=== PATIENT | male | born 1940 | race Asian ===

== ENCOUNTER 2023-03-28 12:50 | Emergency (ER) | payer OTHER ==
[~2023-03-28] VITALS: Ht 165.1 cm; Wt 68.0 kg
[2023-03-28 13:16] VITALS: BP_SYST 102
[2023-03-28 14:00] LABS: BASOPHILS # (AUTO) 0.1 K/uL (0.0-0.2); BASOPHILS % (AUTO) 0.8 % (0.0-2.0); EOSINOPHILS # (AUTO) 0.5 K/uL (0.0-0.4); EOSINOPHILS % (AUTO) 6.5 % (0.0-4.0); HEMATOCRIT 35.3 % (36-54); HEMOGLOBIN 11.6 g/dL (14.0-18.0); LYMPHOCYTES # (AUTO) 0.7 K/uL (1.0-5.5); LYMPHOCYTES % (AUTO) 9.3 % (20.5-51.5); MEAN CORPUSCULAR HEMOGLOBIN 30 pg (27-31); MEAN CORPUSCULAR HGB CONC 33 % (32-36); MEAN CORPUSCULAR VOLUME 90 fL (79.0-98.0); MONOCYTES # (AUTO) 1.1 K/uL (0.0-1.0); MONOCYTES % (AUTO) 15.2 % (1.7-9.3); NEUTROPHILS % (AUTO) 68.2 % (40.0-70.0); PLATELET COUNT (AUTO) 183 K/uL (130-430); RED BLOOD CELL COUNT(AUTO) 3.91 MIL/uL (4.2-6.2); RED CELL DISTRIBUTION WIDTH 14.1 % (9.0-15.0); WHITE BLOOD COUNT (AUTO) 7.4 K/uL (4.8-10.8)
[2023-03-28 14:14] LABS: ANION GAP 10 (5-15); CALCIUM 8.8 mg/dL (8.4-11.0); CHLORIDE 101 mmol/L (98-107); CREATININE 1.58 mg/dL (0.55-1.30); GLUCOSE 231 mg/dL (74-106); UREA NITROGEN, BLOOD 26 mg/dL (8-21)
[2023-03-28 14:19] LABS: ALANINE AMINOTRANSFERASE 64 U/L (12-78); ALBUMIN 2.8 g/dL (3.4-4.8); ASPARTATE AMINOTRANSFERASE 70 U/L (10-37); TOTAL BILIRUBIN 0.2 mg/dL (0.0-1.0)
[2023-03-28] MEDS ORDERED: ONDA-8 TL ×2 (14:29→16:07)
[2023-03-28] MEDS ORDERED: ACET-2634 PO ×2 (14:29→16:09)
[2023-03-28] MEDS ORDERED: COLC0.6T67 PO ×2 (14:29→16:07)
[2023-03-28] MEDS ORDERED: COLCHICINE 0.6 MG TABLET PO ONE (14:30)
[2023-03-28 16:14] VITALS: BP_SYST 102
== END 2023-03-28 16:16 | disposition home or self-care (01) ==
LOC: SED 12:50
DX: M25.432 Effusion, left wrist (principal); Z79.899 Other long term (current) drug therapy
CPT/HCPCS: 36415; 80053; 83605; 85025; 93971; 99285

== ENCOUNTER 2023-12-03 00:11 | Inpatient (IN) | payer OTHER ==
[2023-12-03] VITALS (7 sets, daily range): BP systolic 121–154; PULSE 73–94; RESP 16–20; TEMP 96–99.5; O2SAT 0–99
[~2023-12-03] VITALS: Ht 165.1 cm; Wt 61.9 kg
[~2023-12-03 00:11] MED LIST: ACET-2634 PO; COLC0.6T67 PO; ONDA-8 TL
[2023-12-03 00:45] LABS: BASOPHILS % (AUTO) 0.7 % (0.0-2.0); EOSINOPHILS # (AUTO) 0.4 K/uL (0.0-0.4); EOSINOPHILS % (AUTO) 5.1 % (0.0-4.0); HEMATOCRIT 39.9 % (36-54); LYMPHOCYTES # (AUTO) 0.4 K/uL (1.0-5.5); LYMPHOCYTES % (AUTO) 5.8 % (20.5-51.5); MEAN CORPUSCULAR HEMOGLOBIN 30 pg (27-31); MEAN CORPUSCULAR HGB CONC 33 % (32-36); MEAN CORPUSCULAR VOLUME 92 fL (79.0-98.0); MONOCYTES # (AUTO) 1.2 K/uL (0.0-1.0); MONOCYTES % (AUTO) 15.7 % (1.7-9.3); NEUTROPHILS # (AUTO) 5.4 K/uL (1.8-7.7); NEUTROPHILS % (AUTO) 72.7 % (40.0-70.0); PLATELET COUNT (AUTO) 180 K/uL (130-430); RED BLOOD CELL COUNT(AUTO) 4.35 MIL/uL (4.2-6.2); RED CELL DISTRIBUTION WIDTH 14.6 % (9.0-15.0); WHITE BLOOD COUNT (AUTO) 7.4 K/uL (4.8-10.8)
[2023-12-03 01:11] LABS: INR 0.9 (0.80-1.20); PROTHROMBIN TIME 9.7 SECS (9.5-12.5)
[2023-12-03 01:24] LABS: ALANINE AMINOTRANSFERASE 98 U/L (12-78); ALBUMIN 3.3 g/dL (3.4-4.8); ANION GAP 6 (5-15); ASPARTATE AMINOTRANSFERASE 121 U/L (10-37); BILIRUBIN,DIRECT 0.1 mg/dL (0.0-0.3); CALCIUM 8.7 mg/dL (8.4-11.0); CARBON DIOXIDE 28 mmol/L (23-29); CHLORIDE 102 mmol/L (98-107); CREATININE 1.09 mg/dL (0.55-1.30); GLUCOSE 190 mg/dL (74-106); POTASSIUM 4.2 mmol/L (3.5-5.1); SODIUM SERUM 136 mmol/L (136-145); TOTAL BILIRUBIN 0.2 mg/dL (0.0-1.0); TOTAL PROTEIN, SERUM 7.3 g/dL (6.4-8.3); UREA NITROGEN, BLOOD 21 mg/dL (8-21)
[2023-12-03] MEDS ORDERED: iohexoL 350 mgI/mL, 100 ML INFUS..BTL IV ONE (01:30)
[2023-12-03 01:31] LABS: BILIRUBIN,URINE NEGATIVE (NEGATIVE); CLARITY/URINE CLEAR (CLEAR); COLOR,URINE YELLOW (YELLOW); GLUCOSE,URINE 3+ (NEGATIVE); KETONES,URINE NEGATIVE (NEGATIVE); LEUKOCYTE ESTERASE ,URINE NEGATIVE (NEGATIVE); NITRITE, URINE NEGATIVE (NEGATIVE); PH,URINE 7.5 (5.0-8.0); PROTEIN URINE 2+ (NEGATIVE); UROBILINOGEN,URINE 0.2 (0.2-1.0)
[2023-12-03 01:35] LABS: BLOOD, URINE TRACE (NEGATIVE)
[2023-12-03 01:36] LABS: BACTERIA,URINE None Seen /HPF (None Seen); WBC,URINE 0-3 /HPF (0-3)
[2023-12-03] MEDS ORDERED: INSU100I28 SQ (01:38)
[2023-12-03] MEDS ORDERED: METF-381 PO (01:38)
[2023-12-03] MEDS ORDERED: ATOR20TA64 PO (01:38)
[2023-12-03] MEDS ORDERED: GABAPENTIN (01:38)
[2023-12-03] MEDS ORDERED: ALLO100T PO (01:38)
[2023-12-03] MEDS ORDERED: AMLO5TAB92 PO (01:38)
[2023-12-03] MEDS ORDERED: INSU300I SUBCUT (01:38)
[2023-12-03] MEDS ORDERED: LOSA50TA28 PO (01:38)
[2023-12-03] MEDS: CLOPIDOGREL BISULFATE 75 MG TABLET PO ONE ×2 (03:30→14:47)
[2023-12-03] MEDS: ASPIRIN 81 MG TAB.CHEW PO ONE (03:34)
[2023-12-03] MEDS ORDERED: HYDROcodone/ACETAMIN 5-325 MG TAB (NORCO/ VICODIN) PO PRN (04:45)
[2023-12-03] MEDS ORDERED: ONDANSETRON HCL 4 MG/2 ML VIAL IVP PRN (04:45)
[2023-12-03] MEDS ORDERED: metFORMIN HCL 500 MG TABLET PO ONE (13:45)
[2023-12-03] MEDS ORDERED: NEU300 PO (14:09)
[2023-12-03] MEDS ORDERED: EMPA25TA PO (14:09)
[2023-12-03] MEDS ORDERED: ASA81 PO (14:09)
[2023-12-03] MEDS: amLODIPine BESYLATE 5 MG TABLET PO ONE (14:47)
[2023-12-03] MEDS: ATORVASTATIN 10 MG TABLET PO ONE (14:47)
[2023-12-03] MEDS: ALLOPURINOL 100 MG TABLET (ZYLOPRIM) PO ONE (14:47)
[2023-12-04] VITALS (7 sets, daily range): BP systolic 94–139; PULSE 63–79; RESP 15–18; TEMP 96.7–98.1; O2SAT 93–99
[2023-12-04] MEDS: BENZOCAINE/MENTHOL 1 EACH LOZENGE PO PRN (00:58)
[2023-12-04] MEDS: INSULIN REGULAR, HUMAN 100 UNITS/ML, 3 ML VIAL (humuLIN R) SUBCUT PRN ×2 (01:00→17:29)
[2023-12-04 04:18] LABS: BASOPHILS # (AUTO) 0.1 K/uL (0.0-0.2); BASOPHILS % (AUTO) 0.8 % (0.0-2.0); EOSINOPHILS # (AUTO) 0.5 K/uL (0.0-0.4); EOSINOPHILS % (AUTO) 7.2 % (0.0-4.0); HEMATOCRIT 40.5 % (36-54); HEMOGLOBIN 13.6 g/dL (14.0-18.0); LYMPHOCYTES # (AUTO) 0.7 K/uL (1.0-5.5); LYMPHOCYTES % (AUTO) 10.5 % (20.5-51.5); MEAN CORPUSCULAR HEMOGLOBIN 30 pg (27-31); MEAN CORPUSCULAR HGB CONC 34 % (32-36); MEAN CORPUSCULAR VOLUME 91 fL (79.0-98.0); MONOCYTES # (AUTO) 1.3 K/uL (0.0-1.0); NEUTROPHILS # (AUTO) 3.9 K/uL (1.8-7.7); NEUTROPHILS % (AUTO) 61.5 % (40.0-70.0); PLATELET COUNT (AUTO) 167 K/uL (130-430); RED BLOOD CELL COUNT(AUTO) 4.48 MIL/uL (4.2-6.2); RED CELL DISTRIBUTION WIDTH 14.3 % (9.0-15.0); WHITE BLOOD COUNT (AUTO) 6.3 K/uL (4.8-10.8)
[2023-12-04 04:25] LABS: ANION GAP 9 (5-15); CALCIUM 9.3 mg/dL (8.4-11.0); CARBON DIOXIDE 27 mmol/L (23-29); CHLORIDE 105 mmol/L (98-107); CREATININE 1.22 mg/dL (0.55-1.30); GLUCOSE 99 mg/dL (74-106); POTASSIUM 3.7 mmol/L (3.5-5.1); SODIUM SERUM 141 mmol/L (136-145); UREA NITROGEN, BLOOD 26 mg/dL (8-21)
[2023-12-04] MEDS: ATORVASTATIN 10 MG TABLET PO SCH (08:47)
[2023-12-04] MEDS: CLOPIDOGREL BISULFATE 75 MG TABLET PO SCH (08:47)
[2023-12-04] MEDS: ALLOPURINOL 100 MG TABLET (ZYLOPRIM) PO SCH (08:47)
[2023-12-04] MEDS: amLODIPine BESYLATE 5 MG TABLET PO SCH (08:49)
[2023-12-04] MEDS ORDERED: LORazepam 2 MG/ML VIAL IVP PRN (11:45)
[2023-12-04] MEDS ORDERED: HYDROcodone/ACETAMIN 5-325 MG TAB (NORCO/ VICODIN) PO PRN (11:45)
[2023-12-04] MEDS ORDERED: ACETAMINOPHEN 325 MG TABLET PO PRN ×3 (11:45→12:15)
[2023-12-04] MEDS ORDERED: ONDANSETRON HCL 4 MG/2 ML VIAL IVP PRN (11:45)
[2023-12-04] MEDS ORDERED: NALOXONE HCL 0.4 MG/ML AMP (NARCAN) IVP PRN ×2 (11:45)
[2023-12-04] MEDS ORDERED: ASPIRIN 81 MG TAB.CHEW PO SCH (11:45)
[2023-12-04] MEDS: ALLOPURINOL 100 MG TABLET (ZYLOPRIM) PO ONE (12:36)
[2023-12-04] MEDS: LOSARTAN POTASSIUM 50 MG TABLET (COZAAR) PO ONE (12:37)
[2023-12-04] MEDS: amLODIPine BESYLATE 5 MG TABLET PO ONE (12:37)
[2023-12-04] MEDS: HYDROcodone/ACETAMIN 10-325 MG TAB PO PRN (12:59)
[2023-12-04] MEDS: EMPAGLIFLOZIN 10 MG TABLET PO ONE (13:01)
[2023-12-04] MEDS: INSULIN GLARGINE 100 UNITS/ML, 10 ML VIAL SUBCUT ONE (13:03)
[2023-12-04] MEDS: NORMAL SALINE 5 ML DISP.SYRIN IVF SCH (13:13)
[2023-12-04] MEDS: GABAPENTIN 300 MG CAPSULE PO SCH (17:04)
[2023-12-04] MEDS: NACL 0.9% 1,000 ML IV SCH (17:11)
[2023-12-04] MEDS ORDERED: metFORMIN HCL 500 MG TABLET PO SCH (21:00)
[2023-12-04] MEDS ORDERED: ATORVASTATIN 20 MG TABLET PO SCH (21:00)
[2023-12-05 00:35] VITALS: BP_SYST 104; PULSE 66; RESP 16; TEMP 96.4; O2SAT 96
[2023-12-05 06:01] LABS: BASOPHILS % (AUTO) 0.6 % (0.0-2.0); EOSINOPHILS # (AUTO) 0.7 K/uL (0.0-0.4); EOSINOPHILS % (AUTO) 11.3 % (0.0-4.0); HEMATOCRIT 40.3 % (36-54); HEMOGLOBIN 13.4 g/dL (14.0-18.0); LYMPHOCYTES # (AUTO) 0.8 K/uL (1.0-5.5); LYMPHOCYTES % (AUTO) 13.2 % (20.5-51.5); MEAN CORPUSCULAR HEMOGLOBIN 30 pg (27-31); MEAN CORPUSCULAR HGB CONC 33 % (32-36); MEAN CORPUSCULAR VOLUME 92 fL (79.0-98.0); MONOCYTES # (AUTO) 0.9 K/uL (0.0-1.0); MONOCYTES % (AUTO) 15.4 % (1.7-9.3); NEUTROPHILS # (AUTO) 3.7 K/uL (1.8-7.7); NEUTROPHILS % (AUTO) 59.5 % (40.0-70.0); PLATELET COUNT (AUTO) 178 K/uL (130-430); RED CELL DISTRIBUTION WIDTH 14.3 % (9.0-15.0); WHITE BLOOD COUNT (AUTO) 6.1 K/uL (4.8-10.8)
[2023-12-05 06:30] LABS: ANION GAP 7 (5-15); CALCIUM 9.2 mg/dL (8.4-11.0); CARBON DIOXIDE 27 mmol/L (23-29); CHLORIDE 107 mmol/L (98-107); CREATINE KINASE, TOTAL 93 U/L (39-308); CREATININE 1.16 mg/dL (0.55-1.30); GLUCOSE 78 mg/dL (74-106); PHOSPHORUS 5.3 mg/dL (2.7-4.5); SODIUM SERUM 141 mmol/L (136-145); UREA NITROGEN, BLOOD 29 mg/dL (8-21)
[2023-12-05 07:37] VITALS: BP_SYST 117; PULSE 79; RESP 18; TEMP 97.2; O2SAT 94
[2023-12-05 08:47] VITALS: O2SAT 98
[2023-12-05] MEDS ORDERED: ALLOPURINOL 100 MG TABLET (ZYLOPRIM) PO SCH (09:00)
[2023-12-05] MEDS: ASPIRIN 81 MG TAB.CHEW PO SCH (09:28)
[2023-12-05] MEDS: LOSARTAN POTASSIUM 50 MG TABLET (COZAAR) PO SCH (09:30)
[2023-12-05] MEDS: EMPAGLIFLOZIN 10 MG TABLET PO SCH (09:47)
[2023-12-05] MEDS: INSULIN GLARGINE 100 UNITS/ML, 10 ML VIAL SUBCUT SCH (09:48)
[2023-12-05] MEDS ORDERED: ATOR20TA64 PO (13:49)
[2023-12-05] MEDS ORDERED: NEU300 PO (13:49)
[2023-12-05] MEDS ORDERED: ASPI-859 PO (13:53)
[2023-12-05 14:49] VITALS: BP_SYST 118; PULSE 78; RESP 18; TEMP 97.2; O2SAT 97
[2023-12-05] MEDS ORDERED: metFORMIN HCL 500 MG TABLET PO SCH (18:00)
== END 2023-12-05 15:30 | disposition home health service (06) | DRG 948 ==
LOC: SED 00:11 → STU 04:45 → SMU 12-05 10:49
PROVIDERS: ADMIT Family Medicine; ATTEND Family Medicine
DX: R53.1 Weakness (principal); E86.0 Dehydration; E11.65 Type 2 diabetes mellitus with hyperglycemia; R74.01 Elevation of levels of liver transaminase levels; E78.5 Hyperlipidemia, unspecified; I10 Essential (primary) hypertension; T42.6X5A Adverse effect of other antiepileptic and sedative-hypnotic drugs, initial encounter; T46.6X5A Adverse effect of antihyperlipidemic and antiarteriosclerotic drugs, initial encounter; Y92.89 Other specified places as the place of occurrence of the external cause; Z79.899 Other long term (current) drug therapy
CPT/HCPCS: 36415; 70450-TC; 70496; 70498; 70551; 71045; 80048; 80076; 81000; 81001; 81015; 82550; 82948; 83735; 84100; 84484; 85025; 85610; 85730; 92610-GN; 93005; 93306; 93880; 97110-GP; 97116-GP; 97530-GP; 99285; G0378; J1815; Q9967